=== PATIENT | male | born 1960 ===

== ENCOUNTER 2017-02-14 06:33 | Emergency (ER) | payer MEDICAID ==
[2017-02-14 06:33] VITALS: BMI 15.4
[2017-02-14] MEDS ORDERED: Sodium Chloride 0.9% 1,000 ML IV ONE (07:18)
--- NOTE | 2017-02-14 07:20 | C.PDOC ---
History Of Present Illness 56 year old male with PMH of HTN, Anemia, and Tongue Malignancy presents to ED with complaints of abdominal pain and vomiting as per sister at bedside. Patient unable to speak secondary to tongue mass, but but responds to questions by gesturing and nodding his head. He points to PEG tube when asked about pain. He also nods yes to oral pain. Sister at bedside states patient ate mashed potatoes and pudding then started vomiting around 4am. She states patient keeps complaining of pain to PEG tube and concerned for any infection. Patient nods no to fever, diarrhea, shortness of breath, or chest pain. Time Seen by Provider: 02/14/17 07:04 Chief Complaint (Nursing): Abdominal Pain History Per: Patient, Family History/Exam Limitations: clinical condition Location Of Pain/Discomfort: Other (PEG tube) Past Medical History Vital Signs: Last Vital Signs Temp 98 F 02/14/17 06:56 Pulse 78 02/14/17 06:56 Resp 19 02/14/17 06:56 BP 138/84 02/14/17 06:56 Pulse Ox 98 02/14/17 10:06 - Medical History PMH: Anemia, HTN, Malignancy (Tongue Squamous cell carcinomaarcinoma) - [facility] Procedures EXCISION OF TONGUE, EXTERNAL APPROACH, DIAGNOSTIC (01/04/17) INSERTION OF FEEDING DEVICE INTO STOMACH, OPEN APPROACH (01/04/17) INSPECTION OF STOMACH, PERCUTANEOUS APPROACH (01/04/17) Family History: States: Unknown Family Hx - Social History Hx Alcohol Use: Yes Hx Substance Use: Yes - Immunization History Hx Tetanus Toxoid Vaccination: No Hx Influenza Vaccination: No Hx Pneumococcal Vaccination: No Review Of Systems Except As Marked, All Systems Reviewed And Found Negative. Constitutional: Negative for: Fever ENT: Positive for: Mouth Pain Cardiovascular: Negative for: Chest Pain Respiratory: Negative for: Cough, Shortness of Breath Gastrointestinal: Positive for: Vomiting, Abdominal Pain Neurological: Negative for: Headache Physical Exam - Physical Exam Appears: Chronically Ill (cachectic) Skin: Normal Color, Warm, No Pale, No Jaundice Head: Atraumatic, Normacephalic Eye(s): bilateral: Normal Inspection, EOMI Nose: Normal Oral Mucosa: Moist Tongue: Other (abnormal tongue with mass) Lips: Normal Appearing Neck: Normal ROM Chest: Symmetrical, No Tenderness Cardiovascular: Rhythm Regular Respiratory: Normal Breath Sounds, No Rhonchi, No Wheezing Gastrointestinal/Abdominal: Soft, Tenderness (nonfocal), No Distention, No Guarding, Other (PEG tube in place, dressing clean dry intact) Extremity: Bilateral: Atraumatic, No Pedal Edema, Normal Color And Temperature, Normal ROM Neurological/Psych: Oriented x3 ED Course And Treatment - Laboratory Results Result Diagrams: 02/14/17 07:49 02/14/17 07:49 O2 Sat by Pulse Oximetry: 98 - CT Scan/US Abd pelvis CT Other Rad Studies (CT/US): Read By Radiologist, Radiology Report Reviewed CT/US Interpretation: FINDINGS: LOWER THORAX: Minor bibasilar atelectasis. Re - demonstrated is a small dated approximately 2 mm nodule right lung base unchanged. No basilar consolidation of or pneumothorax. No effusion. LIVER: Liver exhibits normal size measuring approximately 16 cm in CC dimension. No obvious hepatic mass or collection. GALLBLADDER AND BILE DUCTS: Gallbladder is physiologically distended. No evidence of intraluminal gallbladder calculi. PANCREAS: Pancreas not well delineated. The pancreas however does appear somewhat atrophic and fatty replaced. SPLEEN: The spleen exhibits normal size and attenuation pattern without mass collection or calcification. ADRENALS: No adrenal lesions. KIDNEYS AND URETERS: Unremarkable. No hydronephrosis. No solid mass. Kidneys exhibit symmetric size. No evidence of nephrolithiasis. VASCULATURE: Unremarkable. No aortic aneurysm. BOWEL: Evaluate of the bowel is limited due to the lack of oral contrast material. Study is further limited by a paucity of intraperitoneal and retroperitoneal fat which reduces inherent contrast material. In situ PEG tube. The visualized loops of small bowel exhibit normal contour and caliber. No evidence of acute mechanical small bowel obstruction. The visualized loops of small bowel exhibit normal contour and caliber. No evidence of acute mechanical small bowel obstruction. Stool and air seen throughout the colon. . APPENDIX: Appendix is not seen with certainty. No obvious inflammatory changes right lower quadrant of the abdomen. PERITONEUM: Unremarkable. No free fluid. No free air. LYMPH NODES: Unremarkable. No enlarged lymph nodes. BLADDER: Urinary bladder is physiologically distended. No evidence of intraluminal urinary bladder calculi. REPRODUCTIVE: . Prostate gland measures approximately 4.2 cm in transverse dimension. BONES: Multilevel degenerative spondylosis of the lower thoracic and lumbar spine. OTHER FINDINGS: None. IMPRESSION: Limited study as described. No acute intra abdominal pathology seen so far as can be seen. Note that the appendix is not identified with certainty. . In situ PEG tube. Medical Decision Making Medical Decision Making: Impression: 56 y.o male with Tongue malignancy complains of abdominal pain, vomiting and pain to PEG tube Plan: * Labs * CT A/P * IV NS Prior records reviewed: Patient admitted 01/04- for dehydration, dysphagia secondary to tongue malignancy. During admission, Peg tube placement by Dr Fournier on 01/16/17 Progress: Case was discussed with attending Dr Ritchie who also examined patient at bedside agrees with plan Labs and CT reviewed, no acute findings or signs of surgical pathology Patient remained afebrile and in no acute distress. Explain results and provide copy of results to patient and sister. Patient is stable for discharge and instructed to follow up with primary doctor Disposition Counseled Patient/Family Regarding: Diagnosis, Need For Followup - Disposition Referrals: Nino Smith MD [Staff Provider] - Disposition: HOME/ ROUTINE Disposition Time: 10:04 Condition: STABLE Additional Instructions: Please follow up with your primary Dr Smith in few days Your labs and CT reports were provided to you Instructions: How to Use and Care for Your PEG Tube (ED), Acute Abdominal Pain (DC) - POA Present On Arrival: None - Clinical Impression Clinical Impression: Pain around PEG tube site, Tongue mass, Vomiting
[2017-02-14 07:24] VITALS: BP 138/84; PULSE 78; RESP 19; TEMP 98; O2SAT 98
[2017-02-14] MEDS ORDERED: Sodium Chloride 0.9% 1,000 ML ONE (07:28)
[2017-02-14 07:58] LABS: BASO # 0.1 K/uL (0.0-0.2); EOS # 0.2 K/uL (0.0-0.7); EOS % 1.6 % (0.0-4.0); MEAN PLATELET VOLUME 5.9 fL (7.2-11.7)
[2017-02-14 08:05] LABS: BASO % 0.6 % (0.0-2.0); HEMATOCRIT 35.7 % (35.0-51.0); LYMPH # 2.1 K/uL (1.0-4.3); LYMPH % 16.3 % (20.0-40.0); MEAN CELL VOLUME 88.6 fL (80.0-94.0); MEAN CORPUSCULAR HEMOGLOBIN 30.4 pg (27.0-31.0); MEAN CORPUSCULAR HGB CONC 34.2 g/dL (33.0-37.0); MONO % 8.3 % (0.0-10.0); NRBC % 0.1 % (0.0-2.0); RED CELL DISTRIBUTION WIDTH 13.6 % (11.5-14.5); WHITE BLOOD COUNT 12.6 K/uL (4.8-10.8)
[2017-02-14 08:08] LABS: CHLORIDE 87 mmol/L (98-107)
[2017-02-14 08:09] LABS: SODIUM 127 mmol/L (132-148)
[2017-02-14 08:10] LABS: POTASSIUM 4.1 mmol/L (3.6-5.2)
[2017-02-14 08:12] LABS: ALKALINE PHOSPHATASE 75 U/L (38-126); AST/SGOT 19 U/L (17-59); BILIRUBIN,TOTAL 0.3 mg/dL (0.2-1.3); BLOOD UREA NITROGEN 3 mg/dL (9-20); CARBON DIOXIDE 25 mmol/L (22-30); GFR AFRICAN-AMERICAN > 60; TOTAL PROTEIN 7.7 g/dL (6.3-8.3)
[2017-02-14 08:13] LABS: ALT/SGPT 12 U/L (21-72); CALCIUM 9.4 mg/dl (8.6-10.4); GLUCOSE,RANDOM 88 mg/dL (75-110)
[2017-02-14] MEDS ORDERED: HYDROmorphone 1 mg/ml ISec ONE (08:16)
--- NOTE | 2017-02-14 09:52 | CT ---
PROCEDURE: CT Abdomen and Pelvis without intravenous contrast HISTORY: abd pain and vomiting, PEG tube COMPARISON: Comparison made with CT scan abdomen and pelvis 01/14/2017. TECHNIQUE: Contiguous helical/transaxial sections of the abdomen and pelvis performed without oral or intravenous contrast material. Additional 2 dimensional sagittal and coronal reformats provided. Radiation dose: Total exam DLP = 190.5 mGy-cm. FINDINGS: LOWER THORAX: Minor bibasilar atelectasis. Re- demonstrated is a small dated approximately 2 mm nodule right lung base unchanged. No basilar consolidation of or pneumothorax. No effusion. LIVER: Liver exhibits normal size measuring approximately 16 cm in CC dimension. No obvious hepatic mass or collection. GALLBLADDER AND BILE DUCTS: Gallbladder is physiologically distended. No evidence of intraluminal gallbladder calculi. PANCREAS: Pancreas not well delineated. The pancreas however does appear somewhat atrophic and fatty replaced. SPLEEN: The spleen exhibits normal size and attenuation pattern without mass collection or calcification. ADRENALS: No adrenal lesions. KIDNEYS AND URETERS: Unremarkable. No hydronephrosis. No solid mass. Kidneys exhibit symmetric size. No evidence of nephrolithiasis. VASCULATURE: Unremarkable. No aortic aneurysm. BOWEL: Evaluate of the bowel is limited due to the lack of oral contrast material. Study is further limited by a paucity of intraperitoneal and retroperitoneal fat which reduces inherent contrast material. In situ PEG tube. The visualized loops of small bowel exhibit normal contour and caliber. No evidence of acute mechanical small bowel obstruction. The visualized loops of small bowel exhibit normal contour and caliber. No evidence of acute mechanical small bowel obstruction. Stool and air seen throughout the colon. . APPENDIX: Appendix is not seen with certainty. No obvious inflammatory changes right lower quadrant of the abdomen PERITONEUM: Unremarkable. No free fluid. No free air. LYMPH NODES: Unremarkable. No enlarged lymph nodes. BLADDER: Urinary bladder is physiologically distended. No evidence of intraluminal urinary bladder calculi REPRODUCTIVE: . Prostate gland measures approximately 4.2 cm in transverse dimension. BONES: Multilevel degenerative spondylosis of the lower thoracic and lumbar spine. OTHER FINDINGS: None. IMPRESSION: Limited study as described. No acute intra abdominal pathology seen so far as can be seen. Note that the appendix is not identified with certainty. . In situ PEG tube.
== END 2017-02-14 10:10 | disposition home or self-care (01) ==
LOC: C.ER 06:33
DX: T85.848A Pain due to other internal prosthetic devices, implants and grafts, initial encounter (principal); Y83.8 Other surgical procedures as the cause of abnormal reaction of the patient, or of later complication, without mention of misadventure at the time of the procedure; K14.8 Other diseases of tongue; R11.10 Vomiting, unspecified

== ENCOUNTER 2017-02-23 14:46 | Observation (INO) | payer MEDICAID ==
[2017-02-23 14:46] VITALS: BMI 15.4
[2017-02-23] MEDS ORDERED: Collagen Hemostat Powder MM ONE (16:08)
--- NOTE | 2017-02-23 16:12 | C.PDOC ---
History Of Present Illness 56 y/o male pmhx tongue cancer sent by Dr Quiles for evaluation of bleeding in oral cavity which onset today. Pt has known malignancy. Bean called ED prior to patient's arrival, states will be in ED shortly to evaluate patient. Pt has no other complaints at this time. Denies injury. Time Seen by Provider: 02/23/17 15:50 Chief Complaint (Nursing): ENT Problem History Per: Patient History/Exam Limitations: no limitations Onset/Duration Of Symptoms: Hrs Current Symptoms Are (Timing): Still Present Severity: Mild Recent travel outside of the [place]: No Past Medical History Reviewed: Historical Data, Nursing Documentation, Vital Signs Vital Signs: Last Vital Signs Temp 97.9 F 02/24/17 07:13 Pulse 74 02/24/17 07:13 Resp 20 02/24/17 07:13 BP 152/87 H 02/24/17 07:13 Pulse Ox 96 02/24/17 11:59 - Medical History PMH: Anemia, HTN, Malignancy (Tongue Squamous cell carcinoma) - [facility] Procedures EXCISION OF TONGUE, EXTERNAL APPROACH, DIAGNOSTIC (01/04/17) INSERTION OF FEEDING DEVICE INTO STOMACH, OPEN APPROACH (01/04/17) INSPECTION OF STOMACH, PERCUTANEOUS APPROACH (01/04/17) Family History: States: Unknown Family Hx - Social History Hx Alcohol Use: No Hx Substance Use: No - Immunization History Hx Tetanus Toxoid Vaccination: No Hx Influenza Vaccination: No Hx Pneumococcal Vaccination: No Review Of Systems Except As Marked, All Systems Reviewed And Found Negative. ENT: Positive for: Other (bleeding from oral cavity) Physical Exam - Physical Exam Appears: Non-toxic, No Acute Distress Skin: Warm, Dry, No Rash Head: Atraumatic, Normacephalic Oral Mucosa: Moist Tongue: Other (large malignancy to right side of tongue, no active visible bleeding ) Lips: Normal Appearing Throat: Normal, No Erythema Neck: Normal ROM, Supple Chest: Symmetrical Cardiovascular: Rhythm Regular, No Murmur Respiratory: Normal Breath Sounds, No Rales, No Rhonchi, No Wheezing Extremity: Bilateral: Atraumatic Neurological/Psych: Oriented x3 ED Course And Treatment - Laboratory Results Result Diagrams: 02/23/17 17:13 02/23/17 17:13 O2 Sat by Pulse Oximetry: 96 (on room air) Pulse Ox Interpretation: Normal Medical Decision Making Medical Decision Making: Plan: labs- no active bleeding in er. dr quiles bedside agrees. will obs. 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 I have reviewed the chart and agree that the record accurately reflects my personal performance of the history, physical exam, medical decision making, and the department course for this patient. I have also personally directed, reviewed, and agree with the discharge instructions and disposition. Decision To Admit - Pt Status Changed To: Hospital Disposition Of: Observation - . Bed Request Type: Regular Admitting Physician: Nino Black Patient Diagnosis: Oral-mouth cancer, Bleeding from mouth
[2017-02-23 17:23] LABS: BASO # 0.1 K/uL (0.0-0.2); BASO % 0.7 % (0.0-2.0); EOS # 0.1 K/uL (0.0-0.7); EOS % 1.4 % (0.0-4.0); HEMATOCRIT 28.7 % (35.0-51.0); LYMPH # 1.5 K/uL (1.0-4.3); LYMPH % 16.4 % (20.0-40.0); MEAN CELL VOLUME 87.5 fL (80.0-94.0); MEAN CORPUSCULAR HEMOGLOBIN 29.7 pg (27.0-31.0); MEAN PLATELET VOLUME 5.6 fL (7.2-11.7); MONO # 0.7 K/uL (0.0-0.8); MONO % 7.2 % (0.0-10.0); RED CELL DISTRIBUTION WIDTH 13.3 % (11.5-14.5); WHITE BLOOD COUNT 9.4 K/uL (4.8-10.8)
[2017-02-23 17:33] LABS: INR 1.1
[2017-02-23] MEDS ORDERED: Morphine 4 MG/ML VIAL ONE (17:39)
[2017-02-23 18:05] LABS: CHLORIDE 84 mmol/L (98-107)
[2017-02-23 18:06] LABS: POTASSIUM 3.5 mmol/L (3.6-5.2); SODIUM 129 mmol/L (132-148)
[2017-02-23 18:08] LABS: ALKALINE PHOSPHATASE 83 U/L (38-126); AST/SGOT 28 U/L (17-59); BILIRUBIN,TOTAL 0.8 mg/dL (0.2-1.3); BLOOD UREA NITROGEN 4 mg/dL (9-20); CARBON DIOXIDE 31 mmol/L (22-30); GFR AFRICAN-AMERICAN > 60; GLUCOSE,RANDOM 92 mg/dL (75-110); TOTAL PROTEIN 7.4 g/dL (6.3-8.3)
[2017-02-23 18:09] LABS: ALT/SGPT 13 U/L (21-72); CALCIUM 9.1 mg/dl (8.6-10.4)
[2017-02-23] MEDS ORDERED: Potassium Chloride 20 mEq ER Tab PO STA (21:35)
[2017-02-23] MEDS ORDERED: HYDROmorphone 1 mg/ml ISec IVP PRN (21:36)
[2017-02-23] MEDS ORDERED: Moxifloxacin IV 400mg/250ml NS 250 ML IVPB SCH (21:45)
[2017-02-23] MEDS: Dextrose 5%/0.45% NS 1,000 ML IV SCH (22:33)
--- NOTE | 2017-02-24 03:38 | CON ---
DATE: 02/23/2017 REASON FOR CONSULTATION: Tongue bleeding. HISTORY OF PRESENT ILLNESS: This is a 56-year-old male with a history of tongue cancer, who was note d to have bleeding from the tongue today, presented to the ER. There is no bleeding now. The bleedin g was moderate in intensity and constant, which resolved by itself. PAST MEDICAL HISTORY: As noted in the chart by me. MEDICATIONS: As noted in the chart by me. PHYSICAL EXAMINATION: HEAD: Atraumatic, normocephalic. FACE: Good facial movements bilaterally. CONSTITUTIONAL: The patient is emaciated. COMMUNICATION: The patient communicates appropriately. EXTERNAL NOSE AND EARS: No masses, no lesions, no erythema, no edema. INTERNAL NOSE: Deviated septum, no masses, no lesions, no erythema, no edema. ORAL CAVITY, OROPHARYNX: There is a tongue lesion in the anterior tongue. It is on both sides of th e tongue. No bleeding at this point. NECK: Supple. THYROID: No thyromegaly, no goiter. LYMPH NODES: I believe there is some lymphadenopathy of the neck on palpation on both sides, more on the left along the IJ superiorly. ASSESSMENT: 1. Tongue cancer. 2. Tongue bleeding. 3. Deviated septum. PLAN: We will speak to his primary care doctor. Perhaps he will observe him overnight to make sure that there is no more tongue bleeding. I spoke to [facility] at [facility]. They informed me that the y can see him this Thursday, in 2 days, at 1:00, [address] [facility], 8th[address] floor. He will see ____ _ or . Agustin Del Angel MD cc: [id number] TT: 02/24/2017 03:37:55 Confirmation # [id number] Dictation # [id number]
[2017-02-24] MEDS: DiphenhydrAMINE 50 mg/ml Inj IVP SCH ×2 (05:39→15:00)
[2017-02-24 07:16] VITALS: RESP 20
[2017-02-24] MEDS ORDERED: Pantoprazole 40 mg EC Tab PO SCH (10:00)
--- NOTE | 2017-02-24 10:24 | CP.PCM.HP ---
Past Patient History - Past Medical History & Family History Past Medical History?: Yes - Past Social History Smoking Status: Former Smoker - CARDIAC Hx Hypertension: Yes - PULMONARY Hx Respiratory Disorders: No - NEUROLOGICAL Hx Neurological Disorder: No - HEENT Hx HEENT Problems: No - RENAL Hx Chronic Kidney Disease: No - ENDOCRINE/METABOLIC Hx Diabetes Mellitus Type 2: Yes - HEMATOLOGICAL/ONCOLOGICAL Hx Anemia: Yes Other/Comment: ca throat - INTEGUMENTARY Hx Dermatological Problems: No - MUSCULOSKELETAL/RHEUMATOLOGICAL Hx Falls: No - GASTROINTESTINAL Hx Gastrointestinal Disorders: No HX Swallowing Problems: Yes Hx Vomiting: Yes Other/Comment: tongue and mouth cancer - GENITOURINARY/GYNECOLOGICAL Hx Genitourinary Disorders: No - PSYCHIATRIC Hx Substance Use: No - SURGICAL HISTORY Hx Surgeries: No Other/Comment: peg insertion 2004 - ANESTHESIA Hx Anesthesia: No Hx Anesthesia Reactions: No Hx Malignant Hyperthermia: No Has any member of the family had a problem w/ anesthesia?: No Meds Allergies/Adverse Reactions: Allergies Allergy/AdvReac Type Severity Reaction Status Date / Time shellfish derived Allergy SWELLING Verified 02/23/17 14:59 Physical Exam - Constitutional Appears: Well - Head Exam Head Exam: ATRAUMATIC, NORMAL INSPECTION, NORMOCEPHALIC - Eye Exam Eye Exam: EOMI, Normal appearance, PERRL Pupil Exam: NORMAL ACCOMODATION, PERRL - ENT Exam ENT Exam: Mucous Membranes Moist, Normal Exam - Neck Exam Neck exam: Positive for: Normal Inspection - Respiratory Exam Respiratory Exam: Decreased Breath Sounds - Cardiovascular Exam Cardiovascular Exam: REGULAR RHYTHM, +S1, +S2 - GI/Abdominal Exam GI & Abdominal Exam: Diminished Bowel Sounds, Soft - Rectal Exam Rectal Exam: Deferred Results - Vital Signs Recent Vital Signs: Last Vital Signs Temp 97.9 F 02/24/17 07:13 Pulse 74 02/24/17 07:13 Resp 20 02/24/17 07:13 BP 152/87 H 02/24/17 07:13 Pulse Ox 98 02/24/17 07:13 - Labs Result Diagrams: 02/23/17 17:13 02/23/17 17:13
--- NOTE | 2017-02-24 10:36 | CP.PCM.PN ---
Subjective - Date & Time of Evaluation Date of Evaluation: 02/24/17 Time of Evaluation: 10:30 - Subjective Subjective: very small amount of bleeding last night from the tongue head: atraumatic face: good movements const: emaciated com: communicates well external nose and ears: no masses, no lesions nose: deviated septum oc/op: tongue lesion involving anterior tongue, no active bleeding lips/gums: no masses, no lesions neck: supple lymph: lad on left level I/II thyroid: no goiter a/p: tongue cancer neck lad deviated septum tongue bleeding very mild spoke to Dr. orantes in [facility] about the patient. [place] that the patient can go home and follow up in [facility] tomorrow. He has an appointment in [facility] at [address] [place] [address]. 8th floor. Patient to see Dr. Orantes or Dr. Rainey. both physicians know about patient and one well see him. Objective - Vital Signs/Intake and Output Vital Signs (last 24 hours): Temp Pulse Resp BP Pulse Ox 97.9 F 74 20 152/87 H 98 02/24/17 07:13 02/24/17 07:13 02/24/17 07:13 02/24/17 07:13 02/24/17 07:13 Intake and Output: 02/24/17 02/24/17 06:59 18:59 Intake Total 500 Balance 500 - Medications Medications: Current Medications Amlodipine Besylate (Norvasc) 5 mg PO DAILY [facility] Diphenhydramine HCl (Benadryl) 25 mg IVP Q8 [facility] Last Admin: 02/24/17 05:39 Dose: 25 mg Hydromorphone HCl (Dilaudid) 1 mg IVP Q4H PRN PRN Reason: Pain, severe (8-10) Moxifloxacin HCl (Avelox Iv 400mg/250ml Ns) 250 mls @ 167 mls/hr IVPB Q24H [facility] Last Admin: 02/23/17 22:35 Dose: 167 mls/hr Dextrose/Sodium Chloride (Dextrose 5%/0.45% Ns 1000 Ml) 1,000 mls @ 60 mls/hr IV .[id number] [facility] Last Admin: 02/23/17 22:33 Dose: 60 mls/hr Influenza Virus Vaccine (Afluria) 45 mcg IM .ONCE ONE Stop: 02/25/17 10:01 Lisinopril (Zestril) 10 mg PO DAILY [facility] Pantoprazole Sodium (Protonix Ec Tab) 40 mg PO DAILY [facility] Pneumococcal Polyvalent Vaccine (Pneumovax 23 Vaccine) 0.5 ml IM .ONCE ONE Stop: 02/25/17 10:01 - Labs Labs: PT 12.8 SECONDS (9.7-12.2) H 02/23/17 17:13 INR 1.1 02/23/17 17:13 APTT 35 SECONDS (21-34) H 02/23/17 17:13
[2017-02-24] MEDS ORDERED: Bacitracin Ointment 30 GM TUBE TOP SCH (10:45)
[2017-02-24] MEDS ORDERED: Pneumococcal 23-Valent Vaccine IM ONE (13:45)
[2017-02-24] MEDS ORDERED: Influenza Virus Vaccine 45 mcg/0.5 ml Syr IM ONE (13:45)
[2017-02-24] MEDS: Dextrose 5%/0.45% NS 1,000 ML IV SCH (15:17)
[2017-02-24 16:41] VITALS: BP 111/67; PULSE 81; TEMP 96.2; O2SAT 100
--- NOTE | 2017-02-24 23:29 | CP.PCM.CON ---
History of Present Illness - History of Present Illness History of Present Illness: Reason For Consultation Pre Op Cardai risk assessment History Of Present Illness 56 y/o male pmhx tongue cancer sent by Dr Del Angel for evaluation of bleeding in oral cavity which onset today. Pt has known malignancy. Bean called ED prior to patient's arrival, states will be in ED shortly to evaluate patient. Pt has no other complaints at this time. Denies injury. Chief Complaint (Nursing): ENT Problem History Per: Patient History/Exam Limitations: no limitations Onset/Duration Of Symptoms: Hrs Current Symptoms Are (Timing): Still Present Severity: Mild Recent travel outside of the [place]: No Past Medical History Reviewed: Historical Data, Nursing Documentation, Vital Signs Vital Signs: Last Vital Signs Temp 97.9 F 02/24/17 07:13 Pulse 74 02/24/17 07:13 Resp 20 02/24/17 07:13 BP 152/87 H 02/24/17 07:13 Pulse Ox 96 02/24/17 11:59 - Medical History PMH: Anemia, HTN, Malignancy (Tongue Squamous cell carcinoma) - [facility] Procedures EXCISION OF TONGUE, EXTERNAL APPROACH, DIAGNOSTIC (01/04/17) INSERTION OF FEEDING DEVICE INTO STOMACH, OPEN APPROACH (01/04/17) INSPECTION OF STOMACH, PERCUTANEOUS APPROACH (01/04/17) Family History: States: Unknown Family Hx - Social History Hx Alcohol Use: No Hx Substance Use: No - Immunization History Hx Tetanus Toxoid Vaccination: No Hx Influenza Vaccination: No Hx Pneumococcal Vaccination: No Review Of Systems Except As Marked, All Systems Reviewed And Found Negative. ENT: Positive for: Other (bleeding from oral cavity) Physical Exam - Physical Exam Appears: Non-toxic, No Acute Distress Skin: Warm, Dry, No Rash Head: Atraumatic, Normacephalic Oral Mucosa: Moist Tongue: Other (large malignancy to right side of tongue, no active visible bleeding ) Lips: Normal Appearing Throat: Normal, No Erythema Neck: Normal ROM, Supple Chest: Symmetrical Cardiovascular: Rhythm Regular, No Murmur Respiratory: Normal Breath Sounds, No Rales, No Rhonchi, No Wheezing Extremity: Bilateral: Atraumatic Neurological/Psych: Oriented x3 Past Patient History - Past Medical History & Family History Past Medical History?: Yes - Past Social History Smoking Status: Former Smoker - CARDIAC Hx Hypertension: Yes - PULMONARY Hx Respiratory Disorders: No - NEUROLOGICAL Hx Neurological Disorder: No - HEENT Hx HEENT Problems: No - RENAL Hx Chronic Kidney Disease: No - ENDOCRINE/METABOLIC Hx Diabetes Mellitus Type 2: Yes - HEMATOLOGICAL/ONCOLOGICAL Hx Anemia: Yes - INTEGUMENTARY Hx Dermatological Problems: No - MUSCULOSKELETAL/RHEUMATOLOGICAL Hx Falls: No - GASTROINTESTINAL Hx Gastrointestinal Disorders: No HX Swallowing Problems: Yes Hx Vomiting: Yes Other/Comment: tongue and mouth cancer - GENITOURINARY/GYNECOLOGICAL Hx Genitourinary Disorders: No - PSYCHIATRIC Hx Substance Use: No - SURGICAL HISTORY Hx Surgeries: No Other/Comment: peg insertion 2004 - ANESTHESIA Hx Anesthesia: No Hx Anesthesia Reactions: No Hx Malignant Hyperthermia: No Has any member of the family had a problem w/ anesthesia?: No Meds Allergies/Adverse Reactions: Allergies Allergy/AdvReac Type Severity Reaction Status Date / Time shellfish derived Allergy SWELLING Verified 02/23/17 14:59 Results - Vital Signs Recent Vital Signs: Last Vital Signs Temp 96.2 F L 02/24/17 15:00 Pulse 81 02/24/17 15:00 Resp 20 02/24/17 15:00 BP 111/67 02/24/17 15:00 Pulse Ox 100 02/24/17 15:00 - Labs Result Diagrams: 02/23/17 17:13 02/23/17 17:13 Assessment & Plan - Assessment and Plan (Free Text) Assessment: (1) Squamous Cell Carcinoma of Tongue Assessment & Plan: Mgt as per Dr. Del Angel (2) Dysphagia See plan above Patient able to tolerate thin liquids (3) Dehydration Continue IV fluids (4) HTN (hypertension) Well controlled Norvasc 5mg PO daily Lisinopril 10 mg PO daily (5) Anemia PMD mgt (6) Prophylactic measure Protonix 40 mg PO daily No anticoagulation 2/2 bleeding tongue SCDs Check ECHO
--- NOTE | 2017-02-26 19:49 | CARD ---
APPROVED REPORT EKG Measurement Heart [id number] <Conclusion> Normal sinus rhythm Normal ECG
== END 2017-02-24 18:45 | disposition home or self-care (01) ==
LOC: C.ER 14:46 → C.9E 18:41 → C.3T 20:13
PROVIDERS: ADMIT Internal Medicine Nephrology; ATTEND Internal Medicine Nephrology
DX: C02.9 Malignant neoplasm of tongue, unspecified (principal); I10 Essential (primary) hypertension; D64.9 Anemia, unspecified; E86.0 Dehydration; Z23 Encounter for immunization
CPT/HCPCS: 80053; 85025; 85610; 85730; 86850; 86900; 90471 ×2; 90732; 93005; 96374; 99285; C9113; G0378 ×2; J1170; J1200; J2270; J2280; J7042; Q2035

== ENCOUNTER 2017-04-07 10:04 | Emergency (ER) | payer MEDICAID, OTHER ==
[2017-04-07 10:05] VITALS: BMI 15.4
[2017-04-07 10:13] VITALS: RESP 18
[2017-04-07] MEDS ORDERED: Sodium Chloride 0.9% 1,000 ML IV ONE (11:48)
[2017-04-07] MEDS ORDERED: Sodium Chloride 0.9% 1,000 ML ONE (11:55)
[2017-04-07] MEDS ORDERED: Morphine 4 MG/ML VIAL ONE (11:55)
[2017-04-07 12:14] LABS: BASO # 0.1 K/uL (0.0-0.2); BASO % 0.9 % (0.0-2.0); EOS # 0.1 K/uL (0.0-0.7); EOS % 1.4 % (0.0-4.0); HEMATOCRIT 31.2 % (35.0-51.0); LYMPH # 1.7 K/uL (1.0-4.3); LYMPH % 21.7 % (20.0-40.0); MEAN CELL VOLUME 86.2 fL (80.0-94.0); MEAN CORPUSCULAR HEMOGLOBIN 28.7 pg (27.0-31.0); MEAN CORPUSCULAR HGB CONC 33.3 g/dL (33.0-37.0); MEAN PLATELET VOLUME 5.7 fL (7.2-11.7); MONO # 0.6 K/uL (0.0-0.8); MONO % 8.1 % (0.0-10.0); NRBC % 0.1 % (0.0-2.0); RED CELL DISTRIBUTION WIDTH 13.9 % (11.5-14.5); WHITE BLOOD COUNT 7.7 K/uL (4.8-10.8)
[2017-04-07 12:23] LABS: CHLORIDE 89 mmol/L (98-107); POTASSIUM 4.1 mmol/L (3.6-5.2); SODIUM 131 mmol/L (132-148)
[2017-04-07 12:25] LABS: GFR AFRICAN-AMERICAN > 60
[2017-04-07 12:26] LABS: BLOOD UREA NITROGEN 5 mg/dL (9-20); CALCIUM 9.6 mg/dl (8.6-10.4); CARBON DIOXIDE 31 mmol/L (22-30); GLUCOSE,RANDOM 90 mg/dL (75-110)
--- NOTE | 2017-04-07 12:43 | C.PDOC ---
Time Seen by Provider: 04/07/17 11:12 Chief Complaint (Nursing): ENT Problem Past Medical History Vital Signs: Last Vital Signs Temp 97.7 F 04/07/17 10:08 Pulse 102 H 04/07/17 10:08 Resp 18 04/07/17 10:08 BP 128/84 04/07/17 10:08 Pulse Ox 100 04/07/17 10:08 - Medical History PMH: Anemia, HTN, Malignancy (Tongue Squamous cell carcinoma) Denies: HIV, Chronic Kidney Disease - [facility] Procedures EXCISION OF TONGUE, EXTERNAL APPROACH, DIAGNOSTIC (01/04/17) INSERTION OF FEEDING DEVICE INTO STOMACH, OPEN APPROACH (01/04/17) INSPECTION OF STOMACH, PERCUTANEOUS APPROACH (01/04/17) Family History: States: Unknown Family Hx - Social History Hx Alcohol Use: Yes (history) Hx Substance Use: Yes (history) - Immunization History Hx Tetanus Toxoid Vaccination: No Hx Influenza Vaccination: No Hx Pneumococcal Vaccination: No ED Course And Treatment - Laboratory Results Result Diagrams: 04/07/17 12:10 04/07/17 12:10 O2 Sat by Pulse Oximetry: 100 Disposition - Disposition Disposition: Trans to Other Acute Care Hosp Disposition Time: 12:42 Condition: GUARDED - Clinical Impression Clinical Impression: Oral-mouth cancer, Bleeding from mouth, Anemia, Tongue mass, HTN (hypertension)
--- NOTE | 2017-04-07 12:48 | C.PDOC ---
History Of Present Illness 56 y/o male pmhx anemia, HTN, squamous cell carcinoma of tongue presents to the ED with complains of oral pain and spitting up blood clots. Pain is 10/10 to jaw and tongue area. Pt originally from [place], arrived undiagnosed. Pt has been seen and admitted here in the past; seen by Bean with arrangements made for follow up in [facility]. Denies headache, dizziness, nausea, vomiting, or fever. Pt does not speak, history provided by sister. Time Seen by Provider: 04/07/17 11:12 Chief Complaint (Nursing): ENT Problem History Per: Patient History/Exam Limitations: clinical condition Onset/Duration Of Symptoms: Days Current Symptoms Are (Timing): Still Present Severity: Moderate Recent travel outside of the [place]: No Additional History Per: Family Past Medical History Reviewed: Historical Data, Nursing Documentation, Vital Signs Vital Signs: Last Vital Signs Temp 97.6 F 04/07/17 13:30 Pulse 69 04/07/17 13:30 Resp 18 04/07/17 13:30 BP 158/82 H 04/07/17 13:30 Pulse Ox 97 04/07/17 13:30 - Medical History PMH: Anemia, HTN, Malignancy (Tongue Squamous cell carcinoma) - [facility] Procedures CHANGE TRACHEOSTOMY DEVICE IN TRACHEA, EXTERNAL APPROACH (04/23/17) EXCISION OF TONGUE, EXTERNAL APPROACH, DIAGNOSTIC (01/04/17) INSERTION OF FEEDING DEVICE INTO STOMACH, OPEN APPROACH (01/04/17) INSPECTION OF STOMACH, PERCUTANEOUS APPROACH (01/04/17) Family History: States: Unknown Family Hx - Social History Hx Alcohol Use: Yes (history) Hx Substance Use: Yes (history) - Immunization History Hx Tetanus Toxoid Vaccination: No Hx Influenza Vaccination: No Hx Pneumococcal Vaccination: No Review Of Systems Constitutional: Negative for: Fever, Chills ENT: Positive for: Other (pain and bleeding from mouth) Gastrointestinal: Negative for: Nausea, Vomiting Neurological: Negative for: Dizziness Physical Exam - Physical Exam Appears: Non-toxic, No Acute Distress Skin: Warm, Dry, No Rash Head: Atraumatic, Normacephalic Nose: Normal Oral Mucosa: Other (gross blood, tumor noted) Throat: Normal Neck: Normal, Normal ROM, Supple Chest: Symmetrical Cardiovascular: Rhythm Regular, No Murmur Respiratory: Normal Breath Sounds, No Rales, No Rhonchi, No Wheezing Gastrointestinal/Abdominal: Soft Extremity: Normal ROM Extremity: Bilateral: Atraumatic Neurological/Psych: Oriented x3 ED Course And Treatment - Laboratory Results Result Diagrams: 04/07/17 12:10 04/07/17 12:10 O2 Sat by Pulse Oximetry: 100 (room air) Pulse Ox Interpretation: Normal Medical Decision Making Medical Decision Making: Ordered labs, morphine, IV fluids Consulted Dr Del Angel, he will arrange for patient to go to [facility] in [place]. Dr Del Angel spoke to ENT Dr Crawford at [facility] who accepts the patient for transfer to ED. Spoke to [facility] ED, staff made aware of transfer. Disposition - Disposition Disposition: Trans to Other Acute Care Hosp Disposition Time: 14:50 Condition: GUARDED - Clinical Impression Clinical Impression: Oral-mouth cancer, Bleeding from mouth, Anemia, Tongue mass, HTN (hypertension) - Scribe Statement The provider has reviewed the documentation as recorded by the Mei Silva Provider Attestation: All medical record entries made by the Skyleribe were at my direction and personally dictated by me. I have reviewed the chart and agree that the record accurately reflects my personal performance of the history, physical exam, medical decision making, and the department course for this patient. I have also personally directed, reviewed, and agree with the discharge instructions and disposition.
--- NOTE | 2017-04-07 12:55 | CON ---
DATE: 04/07/2017 REASON FOR CONSULTATION: Tongue bleeding. HISTORY OF PRESENT ILLNESS: This is a 56-year-old male with a history of squamous cell carcinoma who had bleeding from the tongue this morning and was brought to the ER. The bleeding has stopped; su kiko, the bleeding is on and off. It is mild to moderate in intensity. PHYSICAL EXAMINATION: The patient has blood clots on his tongue and the tumor can be seen on the ton slava as previously noted by me on his previous visit. The patient had been to [facility] previously and was scheduled to get an embolization of the ton slava tumor; however, he did not show for his appointment yesterday. I spoke with Dr. Dennis who is the attending taking care of him at [facility] and he agreed to take him as an ER to ER transfer so t hat he can get his embolization done at. I relayed this to the ER doctor and she will arrange for th e transfer for ER to ER. Agustin Del Angel MD cc: [id number] TT: 04/07/2017 12:54:21 Confirmation # [id number] Dictation # [id number]
[2017-04-07 13:33] VITALS: BP 158/82; PULSE 69; TEMP 97.6
--- NOTE | 2017-04-10 13:02 | CARD ---
APPROVED REPORT EKG Measurement Heart [id number] <Conclusion> Normal sinus rhythm Normal ECG
[2017-05-06 08:22] VITALS: O2SAT 100
== END 2017-04-07 14:58 | disposition short-term general hospital (02) ==
LOC: C.ER 10:04
DX: C02.9 Malignant neoplasm of tongue, unspecified (principal); K14.8 Other diseases of tongue; D64.9 Anemia, unspecified; I10 Essential (primary) hypertension
CPT/HCPCS: 80048; 85025; 96361; 96374; 99284; J2270; J7040

== ENCOUNTER 2017-04-23 11:38 | Inpatient (IN) | payer OTHER ==
[2017-04-23 14:03] LABS: RBC URINE 1 /hpf (0-3); URINE BILIRUBIN NEGATIVE (NEGATIVE); URINE BLOOD NEGATIVE (NEGATIVE); URINE COLOR Amber (YELLOW); URINE GLUCOSE (UA) NORMAL (Normal); URINE HYALINE CAST 0-2 /lpf (0-2); URINE KETONE NEGATIVE (NEGATIVE); URINE LEUKOCYTE ESTERASE NEG Leu/uL (Negative); URINE PROTEIN NEGATIVE (NEGATIVE); URINE UROBILINOGEN NORMAL mg/dL (0.2-1.0); WBC URINE 1 /hpf (0-5)
[2017-04-23 14:07] LABS: INR 1.2
--- NOTE | 2017-04-23 14:13 | RAD ---
HISTORY: SOB COMPARISON: Chitra in the lower pole healed rib for what is the level that per bone on the FINDINGS: LUNGS: Any scattered tracheostomy unfortunately PLEURA: No significant pleural effusion identified, no pneumothorax apparent. CARDIOVASCULAR: Normal heart size. Tracheostomy noted. OSSEOUS STRUCTURES: Suspect multiple old healed left rib fractures. VISUALIZED UPPER ABDOMEN: Normal. OTHER FINDINGS: None. IMPRESSION: No active disease.
[2017-04-23 14:21] LABS: BLOOD UREA NITROGEN 14 mg/dL (9-20); CALCIUM 9.5 mg/dl (8.6-10.4); CARBON DIOXIDE 31 mmol/L (22-30); CHLORIDE 91 mmol/L (98-107); GFR AFRICAN-AMERICAN > 60; GLUCOSE,RANDOM 81 mg/dL (75-110); SODIUM 131 mmol/L (132-148)
[2017-04-23 14:24] LABS: BASO # 0.1 K/uL (0.0-0.2); BASO % 0.7 % (0.0-2.0); EOS # 0.1 K/uL (0.0-0.7); EOS % 0.9 % (0.0-4.0); HEMATOCRIT 30.3 % (35.0-51.0); LYMPH # 1.6 K/uL (1.0-4.3); LYMPH % 15.9 % (20.0-40.0); MEAN CELL VOLUME 85.4 fL (80.0-94.0); MEAN PLATELET VOLUME 6.1 fL (7.2-11.7); MONO # 0.8 K/uL (0.0-0.8); MONO % 7.5 % (0.0-10.0); RED CELL DISTRIBUTION WIDTH 13.9 % (11.5-14.5); WHITE BLOOD COUNT 10.2 K/uL (4.8-10.8)
--- NOTE | 2017-04-23 14:32 | C.PDOC ---
History Of Present Illness 56 y/o male presents to the ED with complains of new onset headache for the past several days. History per family. PMHx throat cancer, discharged from [facility] 1 week ago after 1 round radiation, trach also placed at that time. Pt on home oxygen. Pt also with blurry vision and new onset hemoptysis. Denies diarrhea, vomiting, abdominal pain, fever or any other complaints. Unable to follow up with heme/onc due to lack of transportation. Poor historian. NO SOB, CP PMD Josafat SALINAS Time Seen by Provider: 04/23/17 14:17 History Per: Family Onset/Duration Of Symptoms: Days Current Symptoms Are (Timing): Still Present Severity: Moderate Recent travel outside of the [place]: No Past Medical History Reviewed: Historical Data, Nursing Documentation, Vital Signs - Medical History PMH: Anemia, HTN, Malignancy (Tongue Squamous cell carcinoma) - [facility] Procedures EXCISION OF TONGUE, EXTERNAL APPROACH, DIAGNOSTIC (01/04/17) INSERTION OF FEEDING DEVICE INTO STOMACH, OPEN APPROACH (01/04/17) INSPECTION OF STOMACH, PERCUTANEOUS APPROACH (01/04/17) Family History: States: Unknown Family Hx - Social History Hx Alcohol Use: Yes (history) Hx Substance Use: Yes (history) - Immunization History Hx Tetanus Toxoid Vaccination: No Hx Influenza Vaccination: No Hx Pneumococcal Vaccination: No Review Of Systems Except As Marked, All Systems Reviewed And Found Negative. Constitutional: Negative for: Fever Eyes: Positive for: Vision Change (blurry) Respiratory: Positive for: Hemoptysis Gastrointestinal: Negative for: Vomiting, Abdominal Pain, Diarrhea Neurological: Positive for: Headache Physical Exam - Physical Exam Appears: Non-toxic, No Acute Distress, Other (cachectic) Skin: Warm, Dry, No Rash Head: Atraumatic, Normacephalic Eye(s): bilateral: Normal Inspection, PERRL, EOMI, Other (No gross deficits) Nose: Normal Oral Mucosa: Moist Throat: Other (Trach in place) Neck: Normal, Normal ROM, Supple Chest: Symmetrical Cardiovascular: Rhythm Regular, No Murmur Respiratory: Normal Breath Sounds, No Rales, No Rhonchi, No Wheezing, Other (no acute respiratory distress) Gastrointestinal/Abdominal: Normal Exam, Soft, No Tenderness, No Guarding, No Rebound Extremity: Normal ROM Extremity: Bilateral: Atraumatic Neurological/Psych: Oriented x3, Normal Speech, Normal Motor, Normal Sensation ED Course And Treatment - Laboratory Results Result Diagrams: 04/23/17 13:44 04/23/17 13:44 ECG: Interpreted By Me, Viewed By Me ECG Rhythm: Sinus Rhythm ECG Interpretation: Normal Rate From EC (BPM) Progress - Re-Evaluation Re-evaluation Note: 04/23/17 13:15 c/o pain. CT pending. Morphine given 04/23/17 14:38 D/W DR Josafat SALINAS CT PENDING. WILL ADMIT AND FU CT RESULT - Data Reviewed Data Reviewed: Lab, Diagnostic imaging, EKG, Old records - Continuity of Care Discussed patient case with:: Patient, Family-HIPPA compliant, PMD Disposition Counseled Patient/Family Regarding: Studies Performed, Diagnosis - Disposition Disposition: HOSPITALIZED Disposition Time: 14:38 Condition: STABLE - POA Present On Arrival: None - Clinical Impression Clinical Impression: Headache, Throat cancer - Scribe Statement The provider has reviewed the documentation as recorded by the Mei Silva Provider Attestation: All medical record entries made by the Mei were at my direction and personally dictated by me. I have reviewed the chart and agree that the record accurately reflects my personal performance of the history, physical exam, medical decision making, and the department course for this patient. I have also personally directed, reviewed, and agree with the discharge instructions and disposition. Decision To Admit - Pt Status Changed To: Hospital Disposition Of: Observation - . Bed Request Type: Regular Admitting Physician: Nino Salinas Patient Diagnosis: Headache, Throat cancer, Hemoptysis
--- NOTE | 2017-04-23 15:29 | CT ---
PROCEDURE: CT HEAD WITHOUT CONTRAST. HISTORY: COMPARISON: None available. TECHNIQUE: Axial computed tomography images were obtained through the head/brain without intravenous contrast. Radiation dose: Total exam DLP = 1224.23 mGy-cm. This CT exam was performed using one or more of the following dose reduction techniques: Automated exposure control, adjustment of the mA and/or kV according to patient size, and/or use of iterative reconstruction technique. FINDINGS: Evaluation limited due to patient motion artifact and obscuring of the posterior fossa. HEMORRHAGE: No intracranial hemorrhage. BRAIN: No mass effect or edema. Mild diffuse age-appropriate atrophy. Mild to moderate periventricular white matter lucency consistent with microvascular ischemic change. VENTRICLES: Unremarkable. No hydrocephalus. CALVARIUM: Unremarkable. PARANASAL SINUSES: Unremarkable as visualized. No significant inflammatory changes. MASTOID AIR CELLS: Unremarkable as visualized. No inflammatory changes. OTHER FINDINGS: Old depressed right lamina papyracea fracture. IMPRESSION: No intracranial mass, hemorrhage or evidence of acute infarct. Age related involutional change.
--- NOTE | 2017-04-23 19:00 | CP.PCM.HP ---
Past Patient History - Infectious Disease Hx of Infectious Diseases: None - Past Medical History & Family History Past Medical History?: Yes - Past Social History Smoking Status: Former Smoker - CARDIAC Hx Hypertension: Yes - PULMONARY Hx Respiratory Disorders: No - NEUROLOGICAL Hx Neurological Disorder: No - HEENT Hx HEENT Problems: No - RENAL Hx Chronic Kidney Disease: No - ENDOCRINE/METABOLIC Hx Endocrine Disorders: Yes Hx Diabetes Mellitus Type 2: Yes - HEMATOLOGICAL/ONCOLOGICAL Hx Anemia: Yes - INTEGUMENTARY Hx Dermatological Problems: No - MUSCULOSKELETAL/RHEUMATOLOGICAL Hx Falls: No - GASTROINTESTINAL Hx Gastrointestinal Disorders: Yes HX Swallowing Problems: Yes Hx Vomiting: Yes Other/Comment: tongue and mouth cancer - GENITOURINARY/GYNECOLOGICAL Hx Genitourinary Disorders: No - PSYCHIATRIC Hx Substance Use: Yes (history) - SURGICAL HISTORY Hx Surgeries: Yes Other/Comment: peg insertion 2004 - ANESTHESIA Hx Anesthesia: No Hx Anesthesia Reactions: No Hx Malignant Hyperthermia: No Meds Allergies/Adverse Reactions: Allergies Allergy/AdvReac Type Severity Reaction Status Date / Time shellfish derived Allergy SWELLING Verified 04/23/17 14:44 Results - Vital Signs Recent Vital Signs: Last Vital Signs Temp Pulse 66 04/23/17 18:06 Resp 18 04/23/17 18:06 BP 131/82 04/23/17 18:06 Pulse Ox 98 04/23/17 18:06 - Labs Result Diagrams: 04/23/17 13:44 04/23/17 13:44
--- NOTE | 2017-04-24 13:28 | CP.PCM.PN ---
Subjective - Date & Time of Evaluation Date of Evaluation: 04/24/17 Time of Evaluation: 08:20 - Subjective Subjective: clinically same Objective - Vital Signs/Intake and Output Vital Signs (last 24 hours): Temp Pulse Resp BP Pulse Ox 96.8 F L 61 20 121/70 100 04/24/17 08:01 04/24/17 08:01 04/24/17 08:01 04/24/17 08:01 04/24/17 08:01 Intake and Output: 04/24/17 04/24/17 06:59 18:59 Intake Total 420 Output Total 350 Balance 70 - Medications Medications: Current Medications Amlodipine Besylate (Norvasc) 5 mg PO DAILY [facility] Last Admin: 04/24/17 10:39 Dose: 5 mg Folic Acid (Folic Acid) 1 mg PEG DAILY [facility] Last Admin: 04/24/17 10:41 Dose: 1 mg Lisinopril (Zestril) 10 mg PEG DAILY [facility] Last Admin: 04/24/17 10:40 Dose: 10 mg Multivitamins/Vitamin C (Multi-Delyn Liquid) 5 ml PEG DAILY [facility] Thiamine HCl (Vitamin B1 Tab) 100 mg PEG DAILY [facility] Last Admin: 04/24/17 10:41 Dose: 100 mg Tramadol HCl (Ultram) 50 mg GT TID PRN PRN Reason: Pain, severe (8-10) Last Admin: 04/24/17 10:39 Dose: 50 mg - Labs Labs: PT 13.5 SECONDS (9.7-12.2) H 04/23/17 13:44 INR 1.2 04/23/17 13:44 APTT 34 SECONDS (21-34) 04/23/17 13:44 - Constitutional Appears: Well - Head Exam Head Exam: ATRAUMATIC, NORMAL INSPECTION, NORMOCEPHALIC - Eye Exam Eye Exam: EOMI, Normal appearance, PERRL Pupil Exam: NORMAL ACCOMODATION, PERRL - ENT Exam ENT Exam: Mucous Membranes Moist, Normal Exam - Respiratory Exam Respiratory Exam: Decreased Breath Sounds - Cardiovascular Exam Cardiovascular Exam: REGULAR RHYTHM, +S1, +S2 - GI/Abdominal Exam GI & Abdominal Exam: Soft, Diminished Bowel Sounds - Rectal Exam Rectal Exam: Deferred
[2017-04-24] MEDS: Multiple Vitamins Oral Solution PEG SCH (13:41)
--- NOTE | 2017-04-24 14:47 | CON ---
DATE: 04/24/2017 REASON FOR CONSULTATION: The patient has a carcinoma of the tongue. HISTORY OF PRESENT ILLNESS: Very poor historian, cannot talk. Most of the information obtained from the record. A 56-year-old gentleman, known case of carcinoma of the tongue, has been treated at the [facility], has received radiation therapy. He is now admitted with headache, weakness, tiredness, but n o other complaint. 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 Admitted and I am called on consult for further evaluation and suggestions. PAST MEDICAL HISTORY: As per history of present illness, anemia, hypertension. PAST SURGICAL HISTORY: Excision of the tongue, external approach and with some radiation also. LIST OF MEDICATIONS: Reviewed. ALLERGIES: Denies any. SOCIAL HISTORY: Has a positive history of smoking, substance use and alcohol abuse also. REVIEW OF SYSTEMS: Unable to be obtained. The patient cannot communicate. Does not have any fever. Did have some blood in the sputum. No nausea, vomiting or diarrhea and has headache. PHYSICAL EXAMINATION: GENERAL: The patient is awake and alert, emaciated. VITAL SIGNS: Temperature 97.1, pulse 75, respirations 20, blood pressure 131/74. HEAD: Normocephalic, atraumatic. EYES: Conjunctivae pink. Sclerae white. Pupils reacting to light. EARS, NOSE AND THROAT: Cannot evaluate, has a tracheostomy. LUNGS: Decreased breath sounds bilaterally. HEART: S1, S2, regular, no gallop, no murmur. ABDOMEN: Soft, not distended, feeding tube. No hepatosplenomegaly. CENTRAL NERVOUS SYSTEM: No gross motor or sensory deficit. LABORATORY DATA: WBC 10,200, hemoglobin 10.3, hematocrit 30.3, platelet count 692,000. IMPRESSION: 1. Carcinoma of the tongue. 2. Malnourishment. 3. Anemia of chronic disease. 4. Secondary thrombocytosis. PLAN: Supportive care, pain management, nutritional support as much as we can. Upon discharge, will be followed up with the oncologist at [facility]. Overall prognosis is poor. Thank you for letting me participate in the care of this patient and I will follow up the patient wit h you. Padmini Lowry MD cc: [phone] TT: 04/24/2017 14:46:44 Confirmation # [id number] Dictation # [id number]
[2017-04-25] MEDS: Multiple Vitamins Oral Solution PEG SCH (10:00)
--- NOTE | 2017-04-25 13:16 | CP.PCM.PN ---
Subjective - Date & Time of Evaluation Date of Evaluation: 04/25/17 Time of Evaluation: 08:20 - Subjective Subjective: clinically same Objective - Vital Signs/Intake and Output Vital Signs (last 24 hours): Temp Pulse Resp BP Pulse Ox 97.5 F L 71 20 122/76 100 04/25/17 08:08 04/25/17 08:08 04/25/17 08:08 04/25/17 08:08 04/25/17 08:08 Intake and Output: 04/25/17 04/25/17 06:59 18:59 Intake Total 990 Output Total 400 Balance 590 - Medications Medications: Current Medications Amlodipine Besylate (Norvasc) 5 mg PO DAILY [facility] Last Admin: 04/25/17 10:00 Dose: 5 mg Folic Acid (Folic Acid) 1 mg PEG DAILY [facility] Last Admin: 04/25/17 10:00 Dose: 1 mg Lisinopril (Zestril) 10 mg PEG DAILY [facility] Last Admin: 04/25/17 10:00 Dose: 10 mg Multivitamins/Vitamin C (Multi-Delyn Liquid) 5 ml PEG DAILY [facility] Last Admin: 04/25/17 10:00 Dose: 5 ml Thiamine HCl (Vitamin B1 Tab) 100 mg PEG DAILY [facility] Last Admin: 04/25/17 10:00 Dose: 100 mg Tramadol HCl (Ultram) 50 mg GT TID PRN PRN Reason: Pain, severe (8-10) Last Admin: 04/25/17 11:14 Dose: 50 mg - Labs Labs: PT 13.5 SECONDS (9.7-12.2) H 04/23/17 13:44 INR 1.2 04/23/17 13:44 APTT 34 SECONDS (21-34) 04/23/17 13:44 - Constitutional Appears: Well - Head Exam Head Exam: ATRAUMATIC, NORMAL INSPECTION, NORMOCEPHALIC - Eye Exam Eye Exam: EOMI, Normal appearance, PERRL Pupil Exam: NORMAL ACCOMODATION, PERRL - ENT Exam ENT Exam: Mucous Membranes Moist, Normal Exam - Neck Exam Neck Exam: Full ROM, Normal Inspection. absent: Lymphadenopathy - Respiratory Exam Respiratory Exam: Decreased Breath Sounds - Cardiovascular Exam Cardiovascular Exam: REGULAR RHYTHM, +S1, +S2 - GI/Abdominal Exam GI & Abdominal Exam: Soft, Diminished Bowel Sounds - Rectal Exam Rectal Exam: Deferred
[2017-04-25 13:51] LABS: BASO # 0.1 K/uL (0.0-0.2); BASO % 0.6 % (0.0-2.0); EOS # 0.1 K/uL (0.0-0.7); EOS % 0.9 % (0.0-4.0); HEMATOCRIT 30.5 % (35.0-51.0); LYMPH # 1.3 K/uL (1.0-4.3); LYMPH % 13.8 % (20.0-40.0); MEAN CELL VOLUME 86.2 fL (80.0-94.0); MEAN CORPUSCULAR HEMOGLOBIN 28.7 pg (27.0-31.0); MEAN CORPUSCULAR HGB CONC 33.3 g/dL (33.0-37.0); MEAN PLATELET VOLUME 6.2 fL (7.2-11.7); MONO # 0.7 K/uL (0.0-0.8); MONO % 7.6 % (0.0-10.0); RED CELL DISTRIBUTION WIDTH 14.2 % (11.5-14.5); WHITE BLOOD COUNT 9.4 K/uL (4.8-10.8)
[2017-04-25 14:04] LABS: CHLORIDE 93 mmol/L (98-107); SODIUM 134 mmol/L (132-148)
[2017-04-25 14:05] LABS: POTASSIUM 4.2 mmol/L (3.6-5.2)
[2017-04-25 14:07] LABS: ALB/GLOB RATIO 0.9 (1.0-2.1); ALKALINE PHOSPHATASE 76 U/L (38-126); AST/SGOT 19 U/L (17-59); BILIRUBIN,TOTAL 0.4 mg/dL (0.2-1.3); BLOOD UREA NITROGEN 14 mg/dL (9-20); CARBON DIOXIDE 31 mmol/L (22-30); GFR AFRICAN-AMERICAN > 60; GLUCOSE,RANDOM 101 mg/dL (75-110); TOTAL PROTEIN 7.1 g/dL (6.3-8.3)
[2017-04-25 14:08] LABS: ALT/SGPT 13 U/L (21-72); CALCIUM 9.1 mg/dl (8.6-10.4)
[2017-04-26] MEDS ORDERED: Lidocaine 2% w Epi 1:100,000 Inj IJ ONE (09:15)
--- NOTE | 2017-04-26 09:44 | CP.PCM.PN ---
Subjective - Date & Time of Evaluation Date of Evaluation: 04/26/17 Time of Evaluation: 08:35 - Subjective Subjective: House Doctor Note: 56 year old male with PMHx of throat cancer seen for pulling his tracheostomy tube out. Patient examined and in no acute distress. Pulse Ox 95-110%. Dr. Josafat Smith was called and instructed nursing to call Dr. Del Angel (ENT). Dr. Del Angel came to bedside to evaluate patient. PE: HEENT: +trache tube in place, non bloody. lungs:CTABL abd: soft, non tender P. Jasiel, PGY 2. Objective - Vital Signs/Intake and Output Vital Signs (last 24 hours): Temp Pulse Resp BP Pulse Ox 97.9 F 66 20 96/61 L 100 04/26/17 08:00 04/26/17 08:00 04/26/17 08:00 04/26/17 08:00 04/26/17 08:00 Intake and Output: 04/26/17 04/26/17 06:59 18:59 Intake Total 470 Output Total 350 Balance 120 - Medications Medications: Current Medications Amlodipine Besylate (Norvasc) 5 mg PO DAILY [facility] Last Admin: 04/25/17 10:00 Dose: 5 mg Folic Acid (Folic Acid) 1 mg PEG DAILY [facility] Last Admin: 04/25/17 10:00 Dose: 1 mg Lisinopril (Zestril) 10 mg PEG DAILY [facility] Last Admin: 04/25/17 10:00 Dose: 10 mg Multivitamins/Vitamin C (Multi-Delyn Liquid) 5 ml PEG DAILY [facility] Last Admin: 04/25/17 10:00 Dose: 5 ml Thiamine HCl (Vitamin B1 Tab) 100 mg PEG DAILY [facility] Last Admin: 04/25/17 10:00 Dose: 100 mg Tramadol HCl (Ultram) 50 mg GT TID PRN PRN Reason: Pain, severe (8-10) Last Admin: 04/26/17 06:42 Dose: 50 mg - Labs Labs: 04/25/17 13:47 04/25/17 13:47 PT 13.5 SECONDS (9.7-12.2) H 04/23/17 13:44 INR 1.2 04/23/17 13:44 APTT 34 SECONDS (21-34) 04/23/17 13:44
[2017-04-26] MEDS: Multiple Vitamins Oral Solution PEG SCH (10:55)
--- NOTE | 2017-04-26 12:47 | CP.PCM.PN ---
Subjective - Date & Time of Evaluation Date of Evaluation: 04/26/17 Time of Evaluation: 08:00 - Subjective Subjective: clinically same Objective - Vital Signs/Intake and Output Vital Signs (last 24 hours): Temp Pulse Resp BP Pulse Ox 97.9 F 66 20 96/61 L 100 04/26/17 08:00 04/26/17 08:00 04/26/17 08:00 04/26/17 08:00 04/26/17 08:00 Intake and Output: 04/26/17 04/26/17 06:59 18:59 Intake Total 470 Output Total 350 Balance 120 - Medications Medications: Current Medications Amlodipine Besylate (Norvasc) 5 mg PO DAILY [facility] Last Admin: 04/26/17 10:56 Dose: 5 mg Folic Acid (Folic Acid) 1 mg PEG DAILY [facility] Last Admin: 04/26/17 10:56 Dose: 1 mg Lisinopril (Zestril) 10 mg PEG DAILY [facility] Last Admin: 04/26/17 10:56 Dose: 10 mg Multivitamins/Vitamin C (Multi-Delyn Liquid) 5 ml PEG DAILY [facility] Last Admin: 04/26/17 10:55 Dose: 5 ml Thiamine HCl (Vitamin B1 Tab) 100 mg PEG DAILY [facility] Last Admin: 04/26/17 10:56 Dose: 100 mg Tramadol HCl (Ultram) 50 mg GT TID PRN PRN Reason: Pain, severe (8-10) Last Admin: 04/26/17 06:42 Dose: 50 mg - Labs Labs: 04/25/17 13:47 04/25/17 13:47 PT 13.5 SECONDS (9.7-12.2) H 04/23/17 13:44 INR 1.2 04/23/17 13:44 APTT 34 SECONDS (21-34) 04/23/17 13:44 - Constitutional Appears: Well - Head Exam Head Exam: ATRAUMATIC, NORMAL INSPECTION, NORMOCEPHALIC - Eye Exam Eye Exam: EOMI, Normal appearance, PERRL Pupil Exam: NORMAL ACCOMODATION, PERRL - ENT Exam ENT Exam: Mucous Membranes Moist, Normal Exam - Neck Exam Neck Exam: Full ROM, Normal Inspection. absent: Lymphadenopathy - Respiratory Exam Respiratory Exam: Decreased Breath Sounds - Cardiovascular Exam Cardiovascular Exam: REGULAR RHYTHM, +S1, +S2 - GI/Abdominal Exam GI & Abdominal Exam: Soft, Diminished Bowel Sounds - Rectal Exam Rectal Exam: Deferred
[2017-04-26 14:00] LABS: BASO # 0.1 K/uL (0.0-0.2); BASO % 0.5 % (0.0-2.0); EOS % 0.5 % (0.0-4.0); HEMATOCRIT 30.7 % (35.0-51.0); LYMPH # 1.2 K/uL (1.0-4.3); LYMPH % 11.2 % (20.0-40.0); MEAN CELL VOLUME 85.4 fL (80.0-94.0); MEAN CORPUSCULAR HEMOGLOBIN 28.4 pg (27.0-31.0); MEAN CORPUSCULAR HGB CONC 33.2 g/dL (33.0-37.0); MEAN PLATELET VOLUME 6.2 fL (7.2-11.7); MONO # 0.8 K/uL (0.0-0.8); MONO % 7.4 % (0.0-10.0); RED CELL DISTRIBUTION WIDTH 13.9 % (11.5-14.5); WHITE BLOOD COUNT 10.3 K/uL (4.8-10.8)
[2017-04-26 14:07] LABS: CHLORIDE 93 mmol/L (98-107); POTASSIUM 4.3 mmol/L (3.6-5.2); SODIUM 133 mmol/L (132-148)
[2017-04-26 14:09] LABS: BILIRUBIN,TOTAL 0.4 mg/dL (0.2-1.3); CARBON DIOXIDE 32 mmol/L (22-30); GFR AFRICAN-AMERICAN > 60
[2017-04-26 14:10] LABS: ALB/GLOB RATIO 0.9 (1.0-2.1); ALKALINE PHOSPHATASE 83 U/L (38-126); ALT/SGPT 14 U/L (21-72); AST/SGOT 18 U/L (17-59); BLOOD UREA NITROGEN 15 mg/dL (9-20); CALCIUM 9.4 mg/dl (8.6-10.4); GLUCOSE,RANDOM 111 mg/dL (75-110); TOTAL PROTEIN 6.9 g/dL (6.3-8.3)
--- NOTE | 2017-04-26 16:46 | OP ---
PROCEDURE DATE: 04/26/2017 PREOPERATIVE DIAGNOSIS: Dislodged tracheostomy. POSTOPERATIVE DIAGNOSIS: Dislodged tracheostomy. SIGNIFICANT FINDINGS: Replacing tracheostomy. DESCRIPTION OF PROCEDURE: The patient was placed in a supine position. The shoulder roll was and neck extended. Under direct visualization, the tracheostomy tube was placed back into the lumen. Stay sutures were placed to secure it and a trach strap was also placed to secure the trach in plac e. The patient tolerated the procedure well. Agustin Del Angel MD cc: [id number] TT: 04/26/2017 16:46:16 dn
[2017-04-27] MEDS: Multiple Vitamins Oral Solution PEG SCH (11:21)
[2017-04-27 14:31] LABS: BASO # 0.1 K/uL (0.0-0.2); EOS # 0.1 K/uL (0.0-0.7)
[2017-04-27 14:45] LABS: CHLORIDE 93 mmol/L (98-107)
[2017-04-27 14:46] LABS: POTASSIUM 4.7 mmol/L (3.6-5.2); SODIUM 133 mmol/L (132-148)
[2017-04-27 14:48] LABS: ALB/GLOB RATIO 0.8 (1.0-2.1); ALKALINE PHOSPHATASE 85 U/L (38-126); AST/SGOT 22 U/L (17-59); BILIRUBIN,TOTAL 0.3 mg/dL (0.2-1.3); BLOOD UREA NITROGEN 16 mg/dL (9-20); CARBON DIOXIDE 32 mmol/L (22-30); GFR AFRICAN-AMERICAN > 60; GLUCOSE,RANDOM 101 mg/dL (75-110); TOTAL PROTEIN 7.1 g/dL (6.3-8.3)
[2017-04-27 14:49] LABS: ALT/SGPT 14 U/L (21-72); CALCIUM 9.5 mg/dl (8.6-10.4)
[2017-04-27 14:51] LABS: LYMPH % 11.8 % (20.0-40.0); MEAN CELL VOLUME 86.4 fL (80.0-94.0)
[2017-04-27 15:04] LABS: BASO % 0.7 % (0.0-2.0); EOS % 0.9 % (0.0-4.0); HEMATOCRIT 32.6 % (35.0-51.0); LYMPH # 1.2 K/uL (1.0-4.3); MEAN CORPUSCULAR HEMOGLOBIN 28.5 pg (27.0-31.0); MEAN PLATELET VOLUME 7.1 fL (7.2-11.7); MONO # 0.9 K/uL (0.0-0.8); MONO % 8.2 % (0.0-10.0); NRBC % 0.1 % (0.0-2.0); WHITE BLOOD COUNT 10.4 K/uL (4.8-10.8)
--- NOTE | 2017-04-27 18:08 | CP.PCM.PN ---
Subjective - Date & Time of Evaluation Date of Evaluation: 04/27/17 Time of Evaluation: 08:00 - Subjective Subjective: clinically same Objective - Vital Signs/Intake and Output Vital Signs (last 24 hours): Temp Pulse Resp BP Pulse Ox 97.4 F L 79 22 111/74 100 04/27/17 15:00 04/27/17 15:00 04/27/17 15:00 04/27/17 15:00 04/27/17 15:00 Intake and Output: 04/27/17 04/27/17 06:59 18:59 Intake Total 420 Output Total 300 Balance 120 - Medications Medications: Current Medications Amlodipine Besylate (Norvasc) 5 mg PO DAILY [facility] Last Admin: 04/27/17 11:16 Dose: Not Given Folic Acid (Folic Acid) 1 mg PEG DAILY [facility] Last Admin: 04/27/17 11:21 Dose: 1 mg Lisinopril (Zestril) 10 mg PEG DAILY [facility] Last Admin: 04/27/17 11:16 Dose: Not Given Multivitamins/Vitamin C (Multi-Delyn Liquid) 5 ml PEG DAILY [facility] Last Admin: 04/27/17 11:21 Dose: 5 ml Thiamine HCl (Vitamin B1 Tab) 100 mg PEG DAILY [facility] Last Admin: 04/27/17 11:21 Dose: 100 mg Tramadol HCl (Ultram) 50 mg GT Q6 PRN PRN Reason: Pain, severe (8-10) Last Admin: 04/27/17 12:45 Dose: 50 mg - Labs Labs: 04/27/17 14:25 04/27/17 14:25 PT 13.5 SECONDS (9.7-12.2) H 04/23/17 13:44 INR 1.2 04/23/17 13:44 APTT 34 SECONDS (21-34) 04/23/17 13:44 - Constitutional Appears: Well - Head Exam Head Exam: ATRAUMATIC, NORMAL INSPECTION, NORMOCEPHALIC - Eye Exam Eye Exam: EOMI, Normal appearance, PERRL Pupil Exam: NORMAL ACCOMODATION, PERRL - ENT Exam ENT Exam: Mucous Membranes Moist, Normal Exam - Neck Exam Neck Exam: Full ROM, Normal Inspection. absent: Lymphadenopathy - Respiratory Exam Respiratory Exam: Decreased Breath Sounds - Cardiovascular Exam Cardiovascular Exam: REGULAR RHYTHM, +S1, +S2 - GI/Abdominal Exam GI & Abdominal Exam: Soft, Diminished Bowel Sounds - Rectal Exam Rectal Exam: Deferred
[2017-04-28 00:29] VITALS: RESP 20
[2017-04-28 08:24] LABS: BASO # 0.1 K/uL (0.0-0.2); BASO % 0.6 % (0.0-2.0); EOS # 0.1 K/uL (0.0-0.7); EOS % 1.2 % (0.0-4.0); HEMATOCRIT 30.5 % (35.0-51.0); LYMPH # 1.1 K/uL (1.0-4.3); LYMPH % 11.9 % (20.0-40.0); MEAN CELL VOLUME 85.7 fL (80.0-94.0); MEAN CORPUSCULAR HEMOGLOBIN 28.7 pg (27.0-31.0); MEAN CORPUSCULAR HGB CONC 33.5 g/dL (33.0-37.0); MEAN PLATELET VOLUME 6.4 fL (7.2-11.7); MONO # 0.8 K/uL (0.0-0.8); MONO % 7.9 % (0.0-10.0); NRBC % 0.1 % (0.0-2.0); RED CELL DISTRIBUTION WIDTH 14.2 % (11.5-14.5); WHITE BLOOD COUNT 9.6 K/uL (4.8-10.8)
[2017-04-28 08:29] LABS: CHLORIDE 93 mmol/L (98-107); POTASSIUM 4.6 mmol/L (3.6-5.2); SODIUM 131 mmol/L (132-148)
[2017-04-28 08:31] LABS: BILIRUBIN,TOTAL 0.4 mg/dL (0.2-1.3); GFR AFRICAN-AMERICAN > 60
[2017-04-28 08:32] LABS: ALB/GLOB RATIO 0.9 (1.0-2.1); ALKALINE PHOSPHATASE 75 U/L (38-126); AST/SGOT 25 U/L (17-59); BLOOD UREA NITROGEN 15 mg/dL (9-20); CARBON DIOXIDE 25 mmol/L (22-30); GLUCOSE,RANDOM 108 mg/dL (75-110); TOTAL PROTEIN 7.1 g/dL (6.3-8.3)
[2017-04-28 08:35] LABS: ALT/SGPT < 6 U/L (21-72)
[2017-04-28] MEDS: Multiple Vitamins Oral Solution PEG SCH (11:52)
--- NOTE | 2017-04-28 15:31 | CP.PCM.PN ---
Subjective - Date & Time of Evaluation Date of Evaluation: 04/28/17 Time of Evaluation: 08:00 - Subjective Subjective: clinically same Objective - Vital Signs/Intake and Output Vital Signs (last 24 hours): Temp Pulse Resp BP Pulse Ox 98 F 68 20 120/72 100 04/28/17 07:08 04/28/17 07:08 04/28/17 07:08 04/28/17 07:08 04/28/17 07:08 Intake and Output: 04/28/17 04/28/17 06:59 18:59 Intake Total 1140 500 Output Total 700 Balance 440 500 - Medications Medications: Current Medications Amlodipine Besylate (Norvasc) 5 mg PO DAILY [facility] Last Admin: 04/28/17 11:51 Dose: 5 mg Folic Acid (Folic Acid) 1 mg PEG DAILY [facility] Last Admin: 04/28/17 11:52 Dose: 1 mg Lisinopril (Zestril) 10 mg PEG DAILY [facility] Last Admin: 04/28/17 11:51 Dose: 10 mg Multivitamins/Vitamin C (Multi-Delyn Liquid) 5 ml PEG DAILY [facility] Last Admin: 04/28/17 11:52 Dose: 5 ml Thiamine HCl (Vitamin B1 Tab) 100 mg PEG DAILY [facility] Last Admin: 04/28/17 11:51 Dose: 100 mg Tramadol HCl (Ultram) 50 mg GT Q6 PRN PRN Reason: Pain, severe (8-10) Last Admin: 04/28/17 11:50 Dose: 50 mg - Labs Labs: 04/28/17 08:07 04/28/17 08:07 PT 13.5 SECONDS (9.7-12.2) H 04/23/17 13:44 INR 1.2 04/23/17 13:44 APTT 34 SECONDS (21-34) 04/23/17 13:44 - Constitutional Appears: Well - Head Exam Head Exam: ATRAUMATIC, NORMAL INSPECTION, NORMOCEPHALIC - Eye Exam Eye Exam: EOMI, Normal appearance, PERRL Pupil Exam: NORMAL ACCOMODATION, PERRL - ENT Exam ENT Exam: Mucous Membranes Moist, Normal Exam - Neck Exam Neck Exam: Full ROM, Normal Inspection. absent: Lymphadenopathy - Respiratory Exam Respiratory Exam: Decreased Breath Sounds - Cardiovascular Exam Cardiovascular Exam: REGULAR RHYTHM, +S1, +S2 - GI/Abdominal Exam GI & Abdominal Exam: Soft, Diminished Bowel Sounds - Rectal Exam Rectal Exam: Deferred
--- NOTE | 2017-04-29 11:24 | CP.PCM.PN ---
Subjective - Date & Time of Evaluation Date of Evaluation: 04/29/17 Time of Evaluation: 07:20 - Subjective Subjective: clinically same Objective - Vital Signs/Intake and Output Vital Signs (last 24 hours): Temp Pulse Resp BP Pulse Ox 97.6 F 84 20 131/82 100 04/29/17 07:26 04/29/17 07:26 04/29/17 07:26 04/29/17 07:26 04/29/17 07:26 Intake and Output: 04/29/17 04/29/17 06:59 18:59 Intake Total 840 Output Total 500 Balance 340 - Medications Medications: Current Medications Amlodipine Besylate (Norvasc) 5 mg PO DAILY [facility] Last Admin: 04/28/17 11:51 Dose: 5 mg Folic Acid (Folic Acid) 1 mg PEG DAILY [facility] Last Admin: 04/28/17 11:52 Dose: 1 mg Lisinopril (Zestril) 10 mg PEG DAILY [facility] Last Admin: 04/28/17 11:51 Dose: 10 mg Multivitamins/Vitamin C (Multi-Delyn Liquid) 5 ml PEG DAILY [facility] Last Admin: 04/28/17 11:52 Dose: 5 ml Thiamine HCl (Vitamin B1 Tab) 100 mg PEG DAILY [facility] Last Admin: 04/28/17 11:51 Dose: 100 mg Tramadol HCl (Ultram) 50 mg GT Q6 PRN PRN Reason: Pain, severe (8-10) Last Admin: 04/28/17 23:30 Dose: 50 mg - Labs Labs: 04/28/17 08:07 04/28/17 08:07 PT 13.5 SECONDS (9.7-12.2) H 04/23/17 13:44 INR 1.2 04/23/17 13:44 APTT 34 SECONDS (21-34) 04/23/17 13:44 - Constitutional Appears: Well - Head Exam Head Exam: ATRAUMATIC, NORMAL INSPECTION, NORMOCEPHALIC - Eye Exam Eye Exam: EOMI, Normal appearance, PERRL Pupil Exam: NORMAL ACCOMODATION, PERRL - ENT Exam ENT Exam: Mucous Membranes Moist, Normal Exam - Neck Exam Neck Exam: Full ROM, Normal Inspection. absent: Lymphadenopathy - Respiratory Exam Respiratory Exam: Decreased Breath Sounds - Cardiovascular Exam Cardiovascular Exam: REGULAR RHYTHM, +S1, +S2 - GI/Abdominal Exam GI & Abdominal Exam: Soft, Diminished Bowel Sounds - Rectal Exam Rectal Exam: Deferred
[2017-04-29] MEDS: Multiple Vitamins Oral Solution PEG SCH (11:42)
--- NOTE | 2017-04-29 15:07 | CP.PCM.PN ---
Subjective - Date & Time of Evaluation Date of Evaluation: 04/29/17 Time of Evaluation: 15:00 - Subjective Subjective: 56 Y/O MALE SEEN AND EXAMINED BY DR Arnulfo SALINAS TODAY PMHX: ANEMIAN, HTN, CARCINOMA OF THE TONGUE, RADIATION, UNDER CARE OF ONCOLOGIST AT [facility] ADMITTED FOR CARCINOMA TONGUE, WEAKNESS, MALNOURISHMENT, ANEMIA OF CHRONIC DISEASE, SECONDARY THROMBOCYTOSIS PT HAD TRACHEOSTOMY REPLACEMENT DONE WITH DR PIERRE RX FOR RESUME HOME CARE FOR VNA AND HOME PT, TRACH CARE, MEDICATION TEACHING, PEG FEEDING PT DENIES ANY PAIN, SOB OR ANY OTHER COMPLAINTS PT AND SISTER REFUSED TO GO TO REHAB TODAY, WISH TO TAKE HIM HOME PT D/C HOME PER DR Arnulfo SALINAS RX GIVEN PER DR SALINAS EDUCATED TO F/U W/ONCOLOGIST AT [facility], DR ODEN, DR SALINAS AND DR SMITH. AGREE W/POC, VERBALIZE UNDERSTANDING Objective - Vital Signs/Intake and Output Vital Signs (last 24 hours): Temp Pulse Resp BP Pulse Ox 97.6 F 84 20 131/82 100 04/29/17 07:26 04/29/17 07:26 04/29/17 07:26 04/29/17 07:26 04/29/17 07:26 Intake and Output: 04/29/17 04/29/17 06:59 18:59 Intake Total 840 Output Total 500 Balance 340 - Medications Medications: Current Medications Amlodipine Besylate (Norvasc) 5 mg PO DAILY [facility] Last Admin: 04/29/17 11:42 Dose: 5 mg Folic Acid (Folic Acid) 1 mg PEG DAILY [facility] Last Admin: 04/29/17 11:41 Dose: 1 mg Lisinopril (Zestril) 10 mg PEG DAILY [facility] Last Admin: 04/29/17 11:41 Dose: 10 mg Multivitamins/Vitamin C (Multi-Delyn Liquid) 5 ml PEG DAILY [facility] Last Admin: 04/29/17 11:42 Dose: 5 ml Thiamine HCl (Vitamin B1 Tab) 100 mg PEG DAILY [facility] Last Admin: 04/29/17 11:44 Dose: 100 mg Tramadol HCl (Ultram) 50 mg GT Q6 PRN PRN Reason: Pain, severe (8-10) Last Admin: 04/29/17 11:40 Dose: 50 mg - Labs Labs: 04/28/17 08:07 04/28/17 08:07 PT 13.5 SECONDS (9.7-12.2) H 04/23/17 13:44 INR 1.2 04/23/17 13:44 APTT 34 SECONDS (21-34) 04/23/17 13:44
[2017-04-29 17:16] VITALS: BP 100/69; PULSE 68; TEMP 97.3; O2SAT 96
== END 2017-04-29 19:50 | disposition home or self-care (01) | DRG 101 ==
LOC: C.ER 11:38 → C.9E 14:40 → C.5T 17:58 → OBSVTOIN 18:34 → C.3T 04-24 00:01
PROVIDERS: ADMIT Internal Medicine Nephrology; ATTEND Internal Medicine Nephrology
PROC: 0B21XFZ Change Tracheostomy Device in Trachea, External Approach (ICD-10-PCS; principal; 2017-04-26)
DX: J95.03 Malfunction of tracheostomy stoma (principal); E46 Unspecified protein-calorie malnutrition; D69.59 Other secondary thrombocytopenia; C02.9 Malignant neoplasm of tongue, unspecified; R04.2 Hemoptysis; I10 Essential (primary) hypertension; D63.0 Anemia in neoplastic disease; Z68.1 Body mass index [BMI] 19.9 or less, adult; D75.89 Other specified diseases of blood and blood-forming organs; R51 Headache; Z87.891 Personal history of nicotine dependence; Z92.21 Personal history of antineoplastic chemotherapy; Y82.8 Other medical devices associated with adverse incidents